=== PATIENT | male | born 1980 | race African-American/Black ===

== ENCOUNTER 2021-04-24 14:22 | Emergency (ER) | payer MEDICAID ==
[~2021-04-24] VITALS: Ht 175.3 cm; Wt 115.0 kg
[2021-04-24] MEDS ORDERED: LEVETIRACETAM 1000MG PREMIX 100 ML IV ONE (15:00)
[2021-04-24 15:58] VITALS: BP 136/88
[2021-04-24 16:01] LABS: BASOPHILS % 0.5 % (0.0-2.0); EOSINOPHILS % 1.1 % (0.0-5.0); HEMATOCRIT. 43.9 % (42.0-52.0); HEMOGLOBIN. 14.4 g/dL (14.0-18.0); LYMPHOCYTES % 14.9 % (20.0-50.0); MEAN CORPUSCULAR HEMOGLOBIN 28.4 pg (28.0-32.0); MEAN CORPUSCULAR VOLUME 86.5 fL (80.0-94.0); MEAN PLATELET VOLUME 9.5 fl (7.4-10.4); MONOCYTES % 8.5 % (2.0-8.0); PLATELET 245 x1000/uL (130-400); RED BLOOD CELL COUNT 5.08 mill/uL (4.7-6.1); RED CELL DISTRIBUTION WIDTH 14.8 % (11.6-14.6)
[2021-04-24 16:10] LABS: CHLORIDE 103 mEq/L (98-107)
[2021-04-24 16:14] LABS: ETHANOL BLOOD < 10 mg/dL
== END 2021-04-24 18:19 | disposition home or self-care (01) ==
LOC: ER 14:22
DX: R56.9 Unspecified convulsions (principal); I11.0 Hypertensive heart disease with heart failure; I50.9 Heart failure, unspecified; I25.10 Atherosclerotic heart disease of native coronary artery without angina pectoris; J44.9 Chronic obstructive pulmonary disease, unspecified; Z88.0 Allergy status to penicillin
CPT/HCPCS: 36415; 80053; 80320; 82962; 84484; 85025; 93005; 99284; G0480